=== PATIENT | male | born 1980 | race Caucasian/White ===

== ENCOUNTER 2021-10-19 08:22 | Inpatient (IN) | payer MEDICAID ==
[~2021-10-19] VITALS: Ht 175.3 cm; Wt 174.4 kg
[2021-10-19 09:24] LABS: BASOPHILS % 0.4 % (0.0-2.0); HEMATOCRIT. 44.8 % (42.0-52.0); HEMOGLOBIN. 14.4 g/dL (14.0-18.0); MEAN CORPUSCULAR HEMOGLOBIN 29.5 pg (28.0-32.0); MEAN CORPUSCULAR VOLUME 91.6 fL (80.0-94.0); MEAN PLATELET VOLUME 11.6 fl (7.4-10.4); MONOCYTES % 5.6 % (2.0-8.0); PLATELET 241 x1000/uL (130-400); RED BLOOD CELL COUNT 4.89 mill/uL (4.7-6.1)
[2021-10-19 09:27] LABS: CHLORIDE 92 mEq/L (98-107)
[2021-10-19] MEDS ORDERED: SODIUM CHLORIDE 0.9% 1,000 ML IV ONE (09:45)
[2021-10-19] MEDS ORDERED: INSULIN LISPRO 100 UNITS/ML SUBCUT ONE (09:45)
[2021-10-19] MEDS ORDERED: ACETAMINOPHEN 325MG TABLET PO PRN ×2 (10:45)
[2021-10-19] MEDS ORDERED: CLONIDINE 0.1MG TABLET PO PRN (10:45)
[2021-10-19] MEDS ORDERED: HYDROCODONE/ACETAMINOPHEN 5/325MG TABLET PO PRN (10:45)
[2021-10-19] MEDS ORDERED: DOCUSATE SODIUM 100MG CAPSULE PO PRN (10:45)
[2021-10-19] MEDS ORDERED: IPRATROPIUM/ALBUTEROL 0.5-3(2.5)MG/3ML NEB HHN PRN (10:45)
[2021-10-19] MEDS ORDERED: ONDANSETRON HCL 4MG/2ML INJ IV PRN (10:45)
[2021-10-19] MEDS: SODIUM CHLORIDE 0.45% 1,000 ML IV SCH ×2 (11:33→17:33)
[2021-10-19] MEDS: INSULIN LISPRO 100 UNITS/ML SUBCUT SCH ×2 (13:37→17:02)
[2021-10-19] MEDS: INSULIN GLARGINE UD 100 UNITS/ML SYR SUBCUT SCH (13:57)
[2021-10-19 17:09] LABS: CLARITY URINE CLEAR (CLEAR); COLOR URINE YELLOW (YELLOW); KETONES URINE 2+ (NEGATIVE); LEUKOCYTE ESTERASE URINE NEGATIVE (NEGATIVE); NITRITE URINE NEGATIVE (NEGATIVE); OCCULT BLOOD URINE NEGATIVE (NEGATIVE); PROTEIN URINE 3+ (NEGATIVE); SPECIFIC GRAVITY URINE 1.037 (1.005-1.030)
[2021-10-19 17:22] LABS: *AMPHETAMINES SCREEN URINE NEGATIVE (NEGATIVE); *BARBITURATES SCREEN URINE NEGATIVE (NEGATIVE); *BENZODIAZEPINES SCREEN URINE NEGATIVE (NEGATIVE); *COCAINE SCREEN URINE NEGATIVE (NEGATIVE)
[2021-10-19 17:23] LABS: CANNABINOID URINE SCREEN NEGATIVE (NEGATIVE); METHADONE URINE SCREEN NEGATIVE (NEGATIVE); OPIATES URINE SCREEN NEGATIVE (NEGATIVE); PHENCYCLIDINE URINE SCREEN NEGATIVE (NEGATIVE)
[2021-10-20] MEDS: FENOFIBRATE NANOCRYSTALLIZED 48MG TABLET PO SCH ×2 (00:13→21:04)
[2021-10-20] MEDS: INSULIN GLARGINE UD 100 UNITS/ML SYR SUBCUT SCH ×2 (00:14→12:56)
[2021-10-20] MEDS: SODIUM CHLORIDE 0.45% 1,000 ML IV SCH ×4 (00:29→19:53)
[2021-10-20] MEDS ORDERED: NALOXONE HCL 0.4MG/ML VIAL IV PRN (04:00)
[2021-10-20 06:32] VITALS: BP 149/99
[2021-10-20 08:00] VITALS: BP 146/93
[2021-10-20] MEDS ORDERED: DEXTROSE 50% WATER 50ML SYRINGE IV PRN (08:00)
[2021-10-20] MEDS: BLOOD SUGAR DIAGNOSTIC STRIP TEST SCH ×4 (08:02→21:10)
[2021-10-20] MEDS: INSULIN LISPRO 100 UNITS/ML SUBCUT SCH ×7 (08:06→21:10)
[2021-10-20] MEDS ORDERED: METF-414 MT (08:17)
[2021-10-20] MEDS ORDERED: METO25TA6 MT (08:18)
[2021-10-20] MEDS ORDERED: INFLUENZA VACCINE 05/PF 0.5 ML SYRINGE IM ONE (10:00)
[2021-10-20 10:02] VITALS: BP 146/93
[2021-10-20 12:00] VITALS: BP 140/88
[2021-10-20 16:00] VITALS: BP_SYST 124; BP_SYST 140; BP_DIAS 78; BP_DIAS 84
[2021-10-20 20:00] VITALS: BP 149/90
[2021-10-20] MEDS ORDERED: INSULIN GLARGINE UD 100 UNITS/ML SYR SUBCUT SCH (22:00)
[2021-10-20] MEDS ORDERED: DEXAMETHASONE 1MG TABLET PO NR (23:00)
[2021-10-21] VITALS: BP 134/94
[2021-10-21] MEDS: SODIUM CHLORIDE 0.45% 1,000 ML IV SCH ×4 (02:22→22:01)
[2021-10-21 04:00] VITALS: BP 118/72
[2021-10-21] MEDS: BLOOD SUGAR DIAGNOSTIC STRIP TEST SCH ×4 (06:16→21:53)
[2021-10-21] MEDS: INSULIN LISPRO 100 UNITS/ML SUBCUT SCH ×7 (06:18→21:55)
[2021-10-21 06:46] LABS: BASOPHILS % 0.3 % (0.0-2.0); EOSINOPHILS % 1.3 % (0.0-5.0); HEMATOCRIT. 37.6 % (42.0-52.0); HEMOGLOBIN. 12.9 g/dL (14.0-18.0); LYMPHOCYTES % 10.8 % (20.0-50.0); MEAN CORPUSCULAR HEMOGLOBIN 30.2 pg (28.0-32.0); MEAN CORPUSCULAR VOLUME 88.3 fL (80.0-94.0); MEAN PLATELET VOLUME 11.1 fl (7.4-10.4); MONOCYTES % 5.2 % (2.0-8.0); NEUTROPHILS % 82.4 % (40.0-76.0); PLATELET 177 x1000/uL (130-400); RED BLOOD CELL COUNT 4.26 mill/uL (4.7-6.1); RED CELL DISTRIBUTION WIDTH 13.7 % (11.6-14.6)
[2021-10-21 07:02] LABS: T4 FREE 1.23 ng/dL (0.76-1.46)
[2021-10-21 08:00] VITALS: BP 124/77
[2021-10-21] MEDS: INSULIN GLARGINE UD 100 UNITS/ML SYR SUBCUT SCH ×2 (11:00→21:55)
[2021-10-21 12:00] VITALS: BP 131/82
[2021-10-21] MEDS ORDERED: DIATR MEGLU/DIATRIZOATE SOLN 30ML PO SCH (15:00)
[2021-10-21 16:00] VITALS: BP 138/90
[2021-10-21 20:00] VITALS: BP 151/93
[2021-10-21] MEDS: FENOFIBRATE NANOCRYSTALLIZED 48MG TABLET PO SCH (22:00)
[2021-10-21] MEDS ORDERED: IOHEXOL-300 100 ML BOTTLE ONE (23:13)
[2021-10-22] VITALS: BP 144/90
[2021-10-22 04:00] VITALS: BP 147/87
[2021-10-22] MEDS: SODIUM CHLORIDE 0.45% 1,000 ML IV SCH (05:03)
[2021-10-22] MEDS: BLOOD SUGAR DIAGNOSTIC STRIP TEST SCH ×4 (05:49→21:46)
[2021-10-22] MEDS: INSULIN LISPRO 100 UNITS/ML SUBCUT SCH ×7 (06:39→22:09)
[2021-10-22 07:01] LABS: BASOPHILS % 0.5 % (0.0-2.0); EOSINOPHILS % 3.2 % (0.0-5.0); HEMATOCRIT. 36.4 % (42.0-52.0); HEMOGLOBIN. 12.7 g/dL (14.0-18.0); LYMPHOCYTES % 17.9 % (20.0-50.0); MEAN CORPUSCULAR HEMOGLOBIN 30.5 pg (28.0-32.0); MEAN CORPUSCULAR VOLUME 87.5 fL (80.0-94.0); MEAN PLATELET VOLUME 10.8 fl (7.4-10.4); NEUTROPHILS % 71.4 % (40.0-76.0); PLATELET 176 x1000/uL (130-400); RED BLOOD CELL COUNT 4.16 mill/uL (4.7-6.1); RED CELL DISTRIBUTION WIDTH 13.7 % (11.6-14.6)
[2021-10-22 07:33] LABS: AMYLASE 65 IU/L (25-115); CHLORIDE 104 mEq/L (98-107)
[2021-10-22 08:00] VITALS: BP 120/78
[2021-10-22] MEDS ORDERED: POTASSIUM CHLORIDE 20MEQ TABLET SR PO NR (08:15)
[2021-10-22] MEDS: INSULIN GLARGINE UD 100 UNITS/ML SYR SUBCUT SCH ×2 (10:31→22:08)
[2021-10-22] MEDS: SODIUM CHLORIDE 0.9% 1,000 ML IV SCH ×2 (10:37→21:46)
[2021-10-22 12:00] VITALS: BP 124/82
[2021-10-22 16:00] VITALS: BP 130/84
[2021-10-22 20:00] VITALS: BP 116/67
[2021-10-22] MEDS: FENOFIBRATE NANOCRYSTALLIZED 48MG TABLET PO SCH (21:46)
[2021-10-23] VITALS: BP 150/87
[2021-10-23 04:00] VITALS: BP 132/74
[2021-10-23] MEDS: SODIUM CHLORIDE 0.9% 1,000 ML IV SCH (06:53)
[2021-10-23] MEDS: INSULIN LISPRO 100 UNITS/ML SUBCUT SCH ×4 (06:53→12:44)
[2021-10-23] MEDS: BLOOD SUGAR DIAGNOSTIC STRIP TEST SCH ×2 (06:53→12:09)
[2021-10-23 08:01] VITALS: BP 137/76
[2021-10-23 09:31] LABS: CHLORIDE 111 mEq/L (98-107)
[2021-10-23 09:34] LABS: BASOPHILS % 0.9 % (0.0-2.0); HEMATOCRIT. 38.8 % (42.0-52.0); HEMOGLOBIN. 13.1 g/dL (14.0-18.0); LYMPHOCYTES % 20.5 % (20.0-50.0); MEAN CORPUSCULAR HEMOGLOBIN 29.6 pg (28.0-32.0); MEAN CORPUSCULAR VOLUME 87.9 fL (80.0-94.0); MEAN PLATELET VOLUME 10.8 fl (7.4-10.4); MONOCYTES % 6.9 % (2.0-8.0); NEUTROPHILS % 68.7 % (40.0-76.0); PLATELET 196 x1000/uL (130-400); RED BLOOD CELL COUNT 4.42 mill/uL (4.7-6.1); RED CELL DISTRIBUTION WIDTH 13.9 % (11.6-14.6)
[2021-10-23 09:36] LABS: PHOSPHORUS 2.4 mg/dL (2.5-4.9)
[2021-10-23 10:03] LABS: HEPATITIS B SURFACE ANTIGEN NEGATIVE
[2021-10-23] MEDS: INSULIN GLARGINE UD 100 UNITS/ML SYR SUBCUT SCH (10:30)
[2021-10-23 11:52] VITALS: BP 120/64
[2021-10-23] MEDS ORDERED: FENO48 PO (12:43)
[2021-10-23] MEDS ORDERED: LANTUSUD SUBCUT (12:43)
[2021-10-23] MEDS ORDERED: INSLIS SUBCUT (12:43)
[2021-10-23 13:15] VITALS: BP 120/64
[2021-10-25 09:07] LABS: ANA IFA Negative (.)
[2021-10-26 13:06] LABS: ANTI-DNA DOUBLE STRANDED QUANT < 1 IU/mL (0-9)
== END 2021-10-23 15:30 | disposition home or self-care (01) | DRG 282 ==
LOC: ER 08:22 → UNDOADMIN 10:24 → MICUSO 10:24 → 7EST 10-20 03:44
PROVIDERS: ADMIT Internal Medicine; ATTEND Internal Medicine
DX: K85.90 Acute pancreatitis without necrosis or infection, unspecified (principal); E11.649 Type 2 diabetes mellitus with hypoglycemia without coma; E46 Unspecified protein-calorie malnutrition; E11.22 Type 2 diabetes mellitus with diabetic chronic kidney disease; Z68.43 Body mass index [BMI] 50.0-59.9, adult; D64.9 Anemia, unspecified; D72.829 Elevated white blood cell count, unspecified; E11.65 Type 2 diabetes mellitus with hyperglycemia; E66.01 Morbid (severe) obesity due to excess calories; E78.00 Pure hypercholesterolemia, unspecified; G47.33 Obstructive sleep apnea (adult) (pediatric); E78.5 Hyperlipidemia, unspecified; E87.6 Hypokalemia; I12.9 Hypertensive chronic kidney disease with stage 1 through stage 4 chronic kidney disease, or unspecified chronic kidney disease; K76.0 Fatty (change of) liver, not elsewhere classified; R80.9 Proteinuria, unspecified; N18.1 Chronic kidney disease, stage 1; Z82.49 Family history of ischemic heart disease and other diseases of the circulatory system; Z79.4 Long term (current) use of insulin; Z83.3 Family history of diabetes mellitus; Z90.49 Acquired absence of other specified parts of digestive tract
CPT/HCPCS: 36415; 71046; 74177; 76700; 80048; 80053; 80061; 80076; 80305; 81003; 82150; 82533; 82570; 82962; 83036; 83735; 84100; 84156; 84439; 84443; 84681; 85025; 86160; 86225; 86256; 86301; 86592; 86705; 86709; 86803; 87340; 90686; 93005; 99285; J1815; J7030; J8540; Q9963; Q9967